=== PATIENT | female | born 2000 | race Caucasian/White ===

== ENCOUNTER 2020-07-01 19:46 | Observation (INO) ==
[2020-07-01 22:56] LABS: Basophils # 0.1 K/mcL (0.0-0.2); Basophils % 0.6 %; Eosinophils # 0.4 K/mcL (0.0-0.6); Eosinophils % 3.3 %; Hematocrit 40.8 % (35.3-44.9); Hemoglobin 14.2 g/dL (11.5-15.4); Immature Granulocytes % 0.3 % (0-4); Lymphocytes # 3.8 K/mcL (0.6-4.6); Mean Corpuscular HGB Conc 34.8 g/dL (31.6-35.5); Mean Corpuscular Hemoglobin 28.6 pg (28.0-33.3); Mean Corpuscular Volume 82.1 fL (83.0-100.0); Mean Platelet Volume 10.9 fL (9.4-12.4); Monocytes % 8.7 %; Neutrophils # 6.1 K/mcL (1.6-8.9); Platelet Count 262 K/mcL (140-400); Red Blood Count 4.97 M/mcL (3.82-4.97); Red Cell Distribution Width 12.4 % (11.5-14.5); Segmented Neutrophils % 54.1 %; White Blood Count 11.4 K/mcL (4.3-11.1)
[2020-07-01] MEDS ORDERED: Ondansetron 4 MG/2 ML VIAL IVP PRN (23:05)
[2020-07-01] MEDS ORDERED: Acetaminophen 325 MG TABLET PO PRN (23:05)
[2020-07-01] MEDS ORDERED: Naloxone 0.4 MG/ML INJ IVP PRN (23:05)
[2020-07-01 23:11] LABS: Alanine Aminotransferase 21 Units/L (7-52); Albumin 4.1 g/dL (3.5-5.7); Albumin/Globulin Ratio 1.6 (1.1-2.2); Alkaline Phosphatase 35 Units/L (34-104); Aspartate Amino Transferase 12 Units/L (13-39); BUN/Creatinine Ratio 26 (6-26); Bilirubin,Total 0.3 mg/dL (0.3-1.0); Blood Urea Nitrogen 12 mg/dL (6-20); Calcium 8.4 mg/dL (8.6-10.3); Carbon Dioxide 20 mEq/L (23-29); Chloride 107 mEq/L (98-107); Globulin 2.6 g/dL (2.4-3.5); Glucose 275 mg/dL (70-105); Osmolality,Calculated 294 (280-300); Potassium 3.6 mEq/L (3.5-5.1); Sodium 137 mEq/L (136-145); Total Protein 6.7 g/dL (6.4-8.9); eGFR For African Americans > 60 (> 60); eGFR For Non-African Americans > 60 (> 60)
[2020-07-01] MEDS ORDERED: Dextrose Gel 15 GM/37.5 ML TUBE PO PRN ×2 (23:23)
[2020-07-01] MEDS ORDERED: D5% in Water 1,000 ML IVC PRN (23:23)
[2020-07-01] MEDS ORDERED: *HR* Dextrose 50 % in Water (Vial) 50 ML VIAL IVP PRN (23:23)
[2020-07-01] MEDS ORDERED: Insulin LISPRO 300 UNITS/3 ML VIAL SUBQ SCH (23:30)
[2020-07-02] MEDS ORDERED: Vancomycin 1,500 MG/265 ML IV.SOLN IVPB ONE (01:00)
[2020-07-02] MEDS: Piperacillin/Tazobactam 3.375 GM in 0.9 % Sodium Chloride Mini Bag 100 ML IVPB SCH ×4 (01:38→21:39)
[2020-07-02] MEDS ORDERED: Insulin LISPRO 300 UNITS/3 ML VIAL SUBQ SCH (06:00)
[2020-07-02] MEDS: lisinopriL 5 MG TABLET PO SCH (09:27)
[2020-07-02] MEDS: Cortisporin *EAR*Susp 10 ML BOTTLE TP SCH ×3 (15:53→21:46)
[2020-07-02] MEDS: Insulin LISPRO 300 UNITS/3 ML VIAL SUBQ SCH (16:34)
[2020-07-02] MEDS: Insulin DETEMIR 100 UNIT/ML X5UNITS SUBQ SCH (21:36)
[2020-07-02] MEDS: *HR* Heparin 5,000 UNIT/ML VIAL SQ SCH (21:37)
[2020-07-03 00:28] LABS: Hematocrit 42.6 % (35.3-44.9); Hemoglobin 14.5 g/dL (11.5-15.4); Mean Corpuscular Hemoglobin 28.9 pg (28.0-33.3); Mean Platelet Volume 11.3 fL (9.4-12.4); Platelet Count 233 K/mcL (140-400); Red Blood Count 5.01 M/mcL (3.82-4.97); Red Cell Distribution Width 12.4 % (11.5-14.5); White Blood Count 8.7 K/mcL (4.3-11.1)
[2020-07-03 01:33] LABS: BUN/Creatinine Ratio 25 (6-26); Blood Urea Nitrogen 14 mg/dL (6-20); Calcium 9.1 mg/dL (8.6-10.3); Carbon Dioxide 19 mEq/L (23-29); Chloride 105 mEq/L (98-107); Glucose 276 mg/dL (70-105); Osmolality,Calculated 292 (280-300); Potassium 3.8 mEq/L (3.5-5.1); Sodium 136 mEq/L (136-145); eGFR For African Americans > 60 (> 60); eGFR For Non-African Americans > 60 (> 60)
[2020-07-03] MEDS: Piperacillin/Tazobactam 3.375 GM in 0.9 % Sodium Chloride Mini Bag 100 ML IVPB SCH ×2 (01:43→08:50)
[2020-07-03] MEDS: *HR* Heparin 5,000 UNIT/ML VIAL SQ SCH (05:41)
[2020-07-03] MEDS: Insulin LISPRO 300 UNITS/3 ML VIAL SUBQ SCH ×2 (08:53→11:54)
[2020-07-03] MEDS: Cortisporin *EAR*Susp 10 ML BOTTLE TP SCH (08:54)
[2020-07-03] MEDS: lisinopriL 5 MG TABLET PO SCH (08:54)
[2020-07-03] MEDS: Insulin DETEMIR 100 UNIT/ML X5UNITS SUBQ SCH (08:54)
[2020-07-03] MEDS ORDERED: NON-FORMULARY MEDICATION 1 EACH EACH (Lisinopril [Lisinopril] 2.5 MG Tablet) PO SCH (09:00)
[2020-07-03 11:56] VITALS: BP 112/79
[2020-07-03 12:11] LABS: Estimated Average Glucose 272 mg/dl; Hemoglobin A1C 11.1 %
[2020-07-03] MEDS ORDERED: Vancomycin 1,250 MG/262.5 ML IV.SOLN IVPB SCH (21:00)
== END 2020-07-03 13:55 | disposition home or self-care (01) ==
LOC: 3NENU → SUATTDRO 21:49 → 3NENU 07-03 08:23
PROVIDERS: ADMIT Internal Medicine; ATTEND Pharmacist

== ENCOUNTER → 2021-01-27 22:28 | Observation (INO) ==
[2021-01-27 21:29] LABS: Basophils % 0.3 %; Eosinophils # 0.1 K/mcL (0.0-0.6); Eosinophils % 1.1 %; Hematocrit 32.2 % (35.3-44.9); Hemoglobin 10.9 g/dL (11.5-15.4); Lymphocytes # 2.2 K/mcL (0.6-4.6); Lymphocytes % 20.7 %; Mean Corpuscular HGB Conc 33.9 g/dL (31.6-35.5); Mean Corpuscular Hemoglobin 28.5 pg (28.0-33.3); Mean Corpuscular Volume 84.1 fL (83.0-100.0); Mean Platelet Volume 10.8 fL (9.4-12.4); Monocytes % 9.6 %; Platelet Count 291 K/mcL (140-400); Red Blood Count 3.83 M/mcL (3.82-4.97); Red Cell Distribution Width 13.7 % (11.5-14.5); Segmented Neutrophils % 67.3 %; White Blood Count 10.4 K/mcL (4.3-11.1)
[2021-01-27 21:50] LABS: Alanine Aminotransferase 6 Units/L (7-52); Aspartate Amino Transferase 8 Units/L (13-39); BUN/Creatinine Ratio 13 (6-26); Blood Urea Nitrogen 5 mg/dL (6-20); Lactate Dehydrogenase 121 Units/L (140-271); Uric Acid 3.1 mg/dL (2.3-7.6); eGFR For African Americans > 60 (> 60); eGFR For Non-African Americans > 60 (> 60)
[2021-01-27 22:03] LABS: Protein/Creatinine Ratio,Urine 0.19 mg/mg (0.00-0.20)
[~2021-01-27 22:28] MED LIST: Ringers Solution, Lactated 1,000 ML IVC SCH
== END | disposition home or self-care (01) ==
LOC: 1NENULAB
PROVIDERS: ADMIT Advanced Practice Midwife; ATTEND Advanced Practice Midwife

== ENCOUNTER 2021-02-24 06:22 | Observation (INO) ==
[2021-02-24] MEDS ORDERED: NIFEdipine Immed Rel 10 MG CAPSULE PO ONE (08:48)
[2021-02-24 09:08] LABS: Bilirubin,Urine Negative (Negative); Blood,Urine Negative (Negative); Clarity,Urine Turbid (Clear); Color,Urine Light-Yellow (Yellow); Glucose,Urine (UA) Normal (Normal); Ketones,Urine 20 mg/dL (Negative); Leukocyte Esterase,Urine Moderate (Negative); Nitrite,Urine Negative (Negative); PH,Urine 6.5 pH Units (5.0-8.0); Protein,Urine Trace mg/dL (Neg-Trace); Specific Gravity,Urine 1.012 (1.010-1.025); Urobilinogen,Urine Normal (Normal)
[2021-02-24 09:13] LABS: Protein/Creatinine Ratio,Urine 0.29 mg/mg (0.00-0.20)
[2021-02-24 09:59] LABS: Basophils % 0.2 %; Eosinophils # 0.1 K/mcL (0.0-0.6); Eosinophils % 0.8 %; Hematocrit 35.2 % (35.3-44.9); Hemoglobin 11.5 g/dL (11.5-15.4); Immature Granulocytes % 0.6 % (0-4); Lymphocytes # 1.8 K/mcL (0.6-4.6); Mean Corpuscular HGB Conc 32.7 g/dL (31.6-35.5); Mean Corpuscular Volume 82.6 fL (83.0-100.0); Mean Platelet Volume 11.7 fL (9.4-12.4); Monocytes % 9.9 %; Platelet Count 251 K/mcL (140-400); Red Blood Count 4.26 M/mcL (3.82-4.97); Red Cell Distribution Width 14.1 % (11.5-14.5); Segmented Neutrophils % 70.5 %; White Blood Count 9.9 K/mcL (4.3-11.1)
[2021-02-24 10:23] LABS: Alanine Aminotransferase 5 Units/L (7-52); Aspartate Amino Transferase 7 Units/L (13-39); BUN/Creatinine Ratio 11 (6-26); Blood Urea Nitrogen 4 mg/dL (6-20); Lactate Dehydrogenase 111 Units/L (140-271); Uric Acid 3.4 mg/dL (2.3-7.6); eGFR For African Americans > 60 (> 60); eGFR For Non-African Americans > 60 (> 60)
[2021-02-24] MEDS ORDERED: Ringers Solution, Lactated 500 ML IVC ONE (12:32)
[2021-02-24] MEDS ORDERED: Ringers Solution, Lactated 500 ML ONE (12:36)
[2021-02-24] MEDS ORDERED: hydrOXYzine pamoate 25 MG CAPSULE PO ONE (14:19)
[2021-02-24] MEDS ORDERED: Insulin LISPRO 300 UNITS/3 ML VIAL SUBQ SCH (14:19)
== END 2021-02-24 16:17 | disposition home or self-care (01) ==
LOC: 1NENULAB
PROVIDERS: ADMIT Student in an Organized Health Care Education/Training Program; ATTEND Student in an Organized Health Care Education/Training Program

== ENCOUNTER 2021-03-15 17:15 | Observation (INO) | END 2021-03-15 19:18 | disposition home or self-care (01) | LOC: 1NENULAB | PROVIDERS: ADMIT Obstetrics & Gynecology; ATTEND Obstetrics & Gynecology ==

== ENCOUNTER → 2021-03-22 15:51 | Observation (INO) ==
[2021-03-22 09:37] LABS: Basophils % 0.2 %; Eosinophils # 0.1 K/mcL (0.0-0.6); Eosinophils % 0.8 %; Hematocrit 36.3 % (35.3-44.9); Hemoglobin 11.8 g/dL (11.5-15.4); Immature Granulocytes % 0.4 % (0-4); Lymphocytes # 2.1 K/mcL (0.6-4.6); Lymphocytes % 22.1 %; Mean Corpuscular HGB Conc 32.5 g/dL (31.6-35.5); Mean Corpuscular Hemoglobin 26.6 pg (28.0-33.3); Mean Corpuscular Volume 81.9 fL (83.0-100.0); Mean Platelet Volume 12.3 fL (9.4-12.4); Monocytes # 0.8 K/mcL (0.0-1.3); Monocytes % 8.9 %; Neutrophils # 6.4 K/mcL (1.6-8.9); Platelet Count 245 K/mcL (140-400); Red Blood Count 4.43 M/mcL (3.82-4.97); Red Cell Distribution Width 14.3 % (11.5-14.5); Segmented Neutrophils % 67.6 %; White Blood Count 9.5 K/mcL (4.3-11.1)
[2021-03-22 09:45] LABS: Protein/Creatinine Ratio,Urine 0.27 mg/mg (0.00-0.20)
[2021-03-22 09:56] LABS: Alanine Aminotransferase 5 Units/L (7-52); Aspartate Amino Transferase 9 Units/L (13-39); BUN/Creatinine Ratio 16 (6-26); Blood Urea Nitrogen 7 mg/dL (6-20); Lactate Dehydrogenase 130 Units/L (140-271); Uric Acid 3.9 mg/dL (2.3-7.6); eGFR For African Americans > 60 (> 60); eGFR For Non-African Americans > 60 (> 60)
[~2021-03-22 15:51] MED LIST changes: +Ringers Solution, Lactated 1,000 ML IVC ONE; -Ringers Solution, Lactated 1,000 ML IVC SCH; +Ringers Solution, Lactated 1,000 ML ONE
== END | disposition home or self-care (01) ==
LOC: 1NENULAB
PROVIDERS: ADMIT Student in an Organized Health Care Education/Training Program; ATTEND Student in an Organized Health Care Education/Training Program

== ENCOUNTER → 2021-03-25 01:57 | Observation (INO) ==
[2021-03-25 01:11] LABS: Basophils % 0.2 %; Eosinophils # 0.1 K/mcL (0.0-0.6); Hematocrit 33.3 % (35.3-44.9); Hemoglobin 10.9 g/dL (11.5-15.4); Immature Granulocytes % 0.3 % (0-4); Lymphocytes # 2.4 K/mcL (0.6-4.6); Lymphocytes % 26.1 %; Mean Corpuscular HGB Conc 32.7 g/dL (31.6-35.5); Mean Corpuscular Hemoglobin 26.6 pg (28.0-33.3); Mean Corpuscular Volume 81.2 fL (83.0-100.0); Mean Platelet Volume 12.4 fL (9.4-12.4); Monocytes # 1.1 K/mcL (0.0-1.3); Monocytes % 12.5 %; Neutrophils # 5.4 K/mcL (1.6-8.9); Platelet Count 230 K/mcL (140-400); Red Cell Distribution Width 14.2 % (11.5-14.5); Segmented Neutrophils % 59.9 %; White Blood Count 9.1 K/mcL (4.3-11.1)
[2021-03-25 01:20] LABS: Protein/Creatinine Ratio,Urine 0.26 mg/mg (0.00-0.20)
[2021-03-25 01:32] LABS: Alanine Aminotransferase 5 Units/L (7-52); Aspartate Amino Transferase 9 Units/L (13-39); BUN/Creatinine Ratio 17 (6-26); Blood Urea Nitrogen 8 mg/dL (6-20); Lactate Dehydrogenase 136 Units/L (140-271); eGFR For African Americans > 60 (> 60); eGFR For Non-African Americans > 60 (> 60)
== END | disposition home or self-care (01) ==
LOC: 1NENULAB
PROVIDERS: ADMIT Obstetrics & Gynecology; ATTEND Obstetrics & Gynecology

== ENCOUNTER 2021-03-26 02:16 | Observation (INO) | END 2021-03-26 04:40 | disposition home or self-care (01) | LOC: INTOOBSV 02:16 → 1NENULAB 02:16 | PROVIDERS: ADMIT Obstetrics & Gynecology; ATTEND Obstetrics & Gynecology ==

== ENCOUNTER 2021-03-26 18:19 | Inpatient (IN) ==
[~2021-03-26 18:19] MED LIST changes: +Famotidine 20 MG/2 ML VIAL IVP PRN; +Metoclopramide 10 MG/2 ML VIAL IVP PRN; +Naloxone 0.4 MG/ML INJ IVP PRN; -Ringers Solution, Lactated 1,000 ML IVC ONE; -Ringers Solution, Lactated 1,000 ML ONE
[2021-03-26] MEDS ORDERED: Azithromycin 500 MG in 0.9 % Sodium Chloride 250 ML IVPB ONE (18:22)
[2021-03-26] MEDS ORDERED: Penicillin G Potassium 5,000,000 UNIT in 0.9 % Sodium Chloride Mini Bag 100 ML IVPB ONE (18:23)
[2021-03-26] MEDS ORDERED: Ringers Solution, Lactated 1,000 ML IVC SCH (18:30)
[2021-03-26 18:56] LABS: Basophils % 0.2 %; Eosinophils # 0.1 K/mcL (0.0-0.6); Eosinophils % 0.7 %; Hemoglobin 11.7 g/dL (11.5-15.4); Immature Granulocytes % 0.2 % (0-4); Lymphocytes # 1.7 K/mcL (0.6-4.6); Lymphocytes % 20.4 %; Mean Corpuscular HGB Conc 31.6 g/dL (31.6-35.5); Mean Corpuscular Volume 82.2 fL (83.0-100.0); Mean Platelet Volume 12.5 fL (9.4-12.4); Monocytes # 0.8 K/mcL (0.0-1.3); Monocytes % 9.9 %; Neutrophils # 5.7 K/mcL (1.6-8.9); Platelet Count 255 K/mcL (140-400); Red Cell Distribution Width 14.5 % (11.5-14.5); Segmented Neutrophils % 68.6 %; White Blood Count 8.3 K/mcL (4.3-11.1)
[2021-03-26] MEDS ORDERED: Oxytocin 20 units/ LR 1000 mL 20 UNIT/1,000 ML BAG IVC SCH (19:00)
[2021-03-26 19:05] LABS: Amphetamine Screen,Urine Negative ng/mL (Cutoff=1000); Barbiturate Screen,Urine Negative ng/mL (Cutoff=200); Benzodiazepines Screen,Urine Negative ng/mL (Cutoff=200); Cannabinoid Screen,Urine Negative ng/mL (Cutoff = 50); Cocaine Screen,Urine Negative ng/mL (Cutoff= 300); Opiate Screen,Urine Negative ng/mL (Cutoff=300); Phencyclidine Screen,Urine Negative ng/mL (Cutoff=25)
[2021-03-26] MEDS ORDERED: EPHEDrine 50 MG/ML VIAL IVP PRN (19:09)
[2021-03-26 19:10] LABS: Alanine Aminotransferase 5 Units/L (7-52); Aspartate Amino Transferase 9 Units/L (13-39); BUN/Creatinine Ratio 15 (6-26); Blood Urea Nitrogen 7 mg/dL (6-20); Glucose 73 mg/dL (70-105); Lactate Dehydrogenase 122 Units/L (140-271); Uric Acid 4.5 mg/dL (2.3-7.6); eGFR For African Americans > 60 (> 60); eGFR For Non-African Americans > 60 (> 60)
[2021-03-26 19:25] LABS: Influenza A PCR Negative (Negative); Influenza B PCR Negative (Negative); Resp. Syncytial Virus PCR Negative (Negative)
[2021-03-26 19:32] LABS: SARS-CoV-2 by PCR (In House) Negative (Negative)
[2021-03-26] MEDS ORDERED: *HR* Labetalol 20 MG/4 ML SYRINGE IVP PRN (19:52)
[2021-03-26] MEDS ORDERED: Calcium Gluconate 1,000 MG/10 ML VIAL IVP PRN (19:57)
[2021-03-26] MEDS ORDERED: miSOPROStoL 25 MCG TABLET VG SCH (20:00)
[2021-03-26] MEDS: Magnesium Sulf 20 gm/SW 500mL 20 GM/500 ML IV.SOLN IVC SCH (20:48)
[2021-03-26] MEDS ORDERED: *HR* Labetalol 20 MG/4 ML SYRINGE IVP ONE (21:39)
[2021-03-26] MEDS: Penicillin G Potassium 2,500,000 UNIT/105 ML MLS IVPB SCH (23:03)
[2021-03-27] MEDS: Penicillin G Potassium 2,500,000 UNIT/105 ML MLS IVPB SCH ×4 (03:05→15:44)
[2021-03-27 05:09] LABS: Alanine Aminotransferase 3 Units/L (7-52); Aspartate Amino Transferase 4 Units/L (13-39); BUN/Creatinine Ratio 25 (6-26); Blood Urea Nitrogen 5 mg/dL (6-20); Lactate Dehydrogenase 74 Units/L (140-271); Uric Acid 3.1 mg/dL (2.3-7.6); eGFR For African Americans > 60 (> 60); eGFR For Non-African Americans > 60 (> 60)
[2021-03-27] MEDS: Epidural Premix (fent/bupiv) 110 ML EP SCH ×2 (07:31→15:09)
[2021-03-27 07:55] LABS: Basophils % 0.3 %; Eosinophils # 0.1 K/mcL (0.0-0.6); Eosinophils % 0.5 %; Hematocrit 35.9 % (35.3-44.9); Immature Granulocytes % 0.3 % (0-4); Lymphocytes # 1.5 K/mcL (0.6-4.6); Lymphocytes % 14.5 %; Mean Corpuscular Hemoglobin 26.6 pg (28.0-33.3); Mean Corpuscular Volume 83.1 fL (83.0-100.0); Monocytes % 9.5 %; Neutrophils # 7.8 K/mcL (1.6-8.9); Platelet Count 223 K/mcL (140-400); Red Blood Count 4.32 M/mcL (3.82-4.97); Red Cell Distribution Width 14.5 % (11.5-14.5); Segmented Neutrophils % 74.9 %; White Blood Count 10.4 K/mcL (4.3-11.1)
[2021-03-27 08:18] LABS: Hemoglobin 11.5 g/dL (11.5-15.4)
[2021-03-27] MEDS: Ondansetron 4 MG/2 ML VIAL IVP PRN ×2 (08:18→16:08)
[2021-03-27] MEDS: Magnesium Sulf 20 gm/SW 500mL 20 GM/500 ML IV.SOLN IVC SCH (15:45)
[2021-03-27] MEDS ORDERED: Azithromycin 500 MG in 0.9 % Sodium Chloride 250 ML IVPB PRN (17:10)
[2021-03-27] MEDS ORDERED: CeFAZolin 2,000 MG/120 ML BAG IVPB ONE (17:10)
[2021-03-27] MEDS ORDERED: MetroNIDAZOLE 500 MG/100 ML 500 MG/100 ML BAG IVPB ONE (17:11)
[2021-03-27] MEDS ORDERED: Lidocaine/EPI 1:200k 2% PF 20 ML VIAL ONE (17:41)
[2021-03-27] MEDS ORDERED: Ketorolac 30 MG/ML VIAL ONE (17:52)
[2021-03-27] MEDS ORDERED: Ondansetron 4 MG/2 ML VIAL ONE (17:52)
[2021-03-27] MEDS ORDERED: Acetaminophen IV 1,000 MG/100 ML BAG IVPB ONE (18:56)
[2021-03-27] MEDS ORDERED: *HR* Morphine Sulfate/PF 10 MG/10 ML AMPUL ONE (19:04)
[2021-03-27] MEDS ORDERED: Magnesium Sulf 20 gm/SW 500mL 20 GM/500 ML IV.SOLN IVC SCH ×2 (21:32)
[2021-03-27] MEDS ORDERED: Metoclopramide 10 MG/2 ML VIAL IVP PRN (21:32)
[2021-03-27] MEDS ORDERED: Oxytocin 20 units/ LR 1000 mL 20 UNIT/1,000 ML BAG IVC SCH (21:32)
[2021-03-27] MEDS ORDERED: BLOOD GLUCOSE METER MC SCH (21:32)
[2021-03-27] MEDS ORDERED: Ondansetron 4 MG/2 ML VIAL IVP PRN (21:32)
[2021-03-27] MEDS: Acetaminophen 325 MG TABLET PO SCH (23:56)
[2021-03-27] MEDS: Ibuprofen 600 MG TABLET PO SCH (23:56)
[2021-03-27] MEDS: cefOXitin 2,000 MG in Water for inj. (sterile) 20 ML IVP SCH (23:57)
[2021-03-28] MEDS: metroNIDAZOLE 500 MG TABLET PO SCH ×4 (01:07→21:59)
[2021-03-28 04:06] LABS: Basophils % 0.1 %; Hematocrit 30.2 % (35.3-44.9); Immature Granulocytes % 0.6 % (0-4); Lymphocytes # 0.8 K/mcL (0.6-4.6); Lymphocytes % 6.1 %; Mean Corpuscular HGB Conc 32.1 g/dL (31.6-35.5); Mean Corpuscular Hemoglobin 26.9 pg (28.0-33.3); Mean Corpuscular Volume 83.9 fL (83.0-100.0); Mean Platelet Volume 12.6 fL (9.4-12.4); Monocytes # 0.7 K/mcL (0.0-1.3); Monocytes % 5.8 %; Neutrophils # 11.1 K/mcL (1.6-8.9); Platelet Count 249 K/mcL (140-400); Red Cell Distribution Width 14.5 % (11.5-14.5); Segmented Neutrophils % 87.4 %; White Blood Count 12.7 K/mcL (4.3-11.1)
[2021-03-28 04:07] LABS: Hemoglobin 9.7 g/dL (11.5-15.4)
[2021-03-28] MEDS: Prenatal Vit/FA 1 EACH TABLET PO SCH (07:53)
[2021-03-28] MEDS: cefOXitin 2,000 MG in Water for inj. (sterile) 20 ML IVP SCH ×2 (07:54→16:22)
[2021-03-28] MEDS ORDERED: [UNRECOGNIZED DRUG - OTHER] PO SCH (09:00)
[2021-03-28] MEDS: Acetaminophen 325 MG TABLET PO SCH ×3 (10:33→21:58)
[2021-03-28] MEDS: Insulin LISPRO 300 UNITS/3 ML VIAL SUBQ SCH (10:34)
[2021-03-28] MEDS: Ibuprofen 600 MG TABLET PO SCH ×3 (10:34→21:57)
[2021-03-28] MEDS ORDERED: *HR* Dextrose 50 % in Water (Syg) 50 ML SYRINGE IVP PRN (14:16)
[2021-03-28] MEDS: Simethicone 80 MG TAB.CHEW PO PRN (21:57)
[2021-03-29] MEDS: *HR* OxyCODONE Immed Rel 5 MG TABLET PO PRN ×2 (00:56→15:48)
[2021-03-29] MEDS: Acetaminophen 325 MG TABLET PO SCH ×3 (05:28→20:10)
[2021-03-29] MEDS: Ibuprofen 600 MG TABLET PO SCH ×3 (05:28→20:09)
[2021-03-29] MEDS: metroNIDAZOLE 500 MG TABLET PO SCH ×2 (08:20→15:48)
[2021-03-29] MEDS: Prenatal Vit/FA 1 EACH TABLET PO SCH (08:21)
[2021-03-29] MEDS: Simethicone 80 MG TAB.CHEW PO PRN (08:22)
[2021-03-29] MEDS: Insulin LISPRO 300 UNITS/3 ML VIAL SUBQ SCH ×3 (08:57→18:49)
[2021-03-30] MEDS: *HR* OxyCODONE Immed Rel 5 MG TABLET PO PRN ×3 (00:40→20:20)
[2021-03-30] MEDS: Ibuprofen 600 MG TABLET PO SCH ×2 (03:05→23:56)
[2021-03-30] MEDS: Acetaminophen 325 MG TABLET PO SCH ×3 (03:05→23:57)
[2021-03-30] MEDS: Prenatal Vit/FA 1 EACH TABLET PO SCH (07:38)
[2021-03-30] MEDS ORDERED: Insulin DETEMIR 100 UNIT/ML X5UNITS SUBQ ONE (09:51)
[2021-03-30] MEDS ORDERED: Ondansetron ODT 4 MG TAB.RAPDIS SL PRN (10:00)
[2021-03-30] MEDS: Simethicone 80 MG TAB.CHEW PO PRN (12:49)
[2021-03-30] MEDS: Insulin LISPRO 300 UNITS/3 ML VIAL SUBQ SCH ×2 (13:48→13:58)
[2021-03-30] MEDS: NIFEdipine XL (24 HR) 30 MG TAB.ER.24 PO SCH (16:02)
[2021-03-30] MEDS ORDERED: Insulin LISPRO 300 UNITS/3 ML VIAL SUBQ SCH (17:00)
[2021-03-31] MEDS: *HR* OxyCODONE Immed Rel 5 MG TABLET PO PRN (02:38)
[2021-03-31] MEDS: Ibuprofen 600 MG TABLET PO SCH (05:56)
[2021-03-31] MEDS: Acetaminophen 325 MG TABLET PO SCH (05:56)
[2021-03-31] MEDS ORDERED: Insulin LISPRO 300 UNITS/3 ML VIAL SUBQ SCH (08:00)
[2021-03-31] MEDS: NIFEdipine XL (24 HR) 30 MG TAB.ER.24 PO SCH (08:09)
[2021-03-31] MEDS: Prenatal Vit/FA 1 EACH TABLET PO SCH (08:09)
[2021-03-31 08:46] VITALS: BP 142/84; PULSE 96; TEMP 98.1; O2SAT 99
[2021-03-31] MEDS ORDERED: NON-FORMULARY MEDICATION 1 EACH EACH (Ferrous Sulfate 1 TAB) PO SCH (09:00)
[2021-03-31] MEDS ORDERED: Insulin DETEMIR 100 UNIT/ML X5UNITS SUBQ ONE (10:00)
== END 2021-03-31 13:30 | disposition home or self-care (01) | DRG 540 ==
LOC: 1NENULAB → UNDODISIN 03-27 15:08 → 1NENUOBS 03-27 21:28
PROVIDERS: ADMIT Obstetrics & Gynecology; ATTEND Obstetrics & Gynecology